=== PATIENT | male | born 1955 | race Caucasian/White ===

== ENCOUNTER 2019-06-21 09:39 | Inpatient (IN) ==
[2019-06-21] MEDS ORDERED: Albuterol 2.5 MG/3 ML NEBULIZER IH PRN ×2 (10:03→20:16)
[2019-06-21] MEDS ORDERED: cefOXitin 2,000 MG in Water for inj. (sterile) 20 ML IVP ONE (10:03)
[2019-06-21] MEDS ORDERED: Ringers Solution, Lactated 1,000 ML IVC SCH (10:15)
[2019-06-21] MEDS ORDERED: Acetaminophen IV 1,000 MG/100 ML INFUS..BTL IVPB ONE (10:57)
[2019-06-21] MEDS ORDERED: Famotidine 20 MG/2 ML VIAL IVP ONE (10:57)
[2019-06-21] MEDS ORDERED: *HR* Propofol 200 MG/20 ML VIAL IVP ONE (11:23)
[2019-06-21] MEDS ORDERED: *HR* Rocuronium Bromide 50 MG/5 ML VIAL ONE ×2 (11:23→13:18)
[2019-06-21] MEDS ORDERED: *HR* Midazolam HCl 2 MG/2 ML VIAL ONE (11:23)
[2019-06-21] MEDS ORDERED: *HR* FentaNYL (PF) 100 MCG/2 ML VIAL ONE (11:23)
[2019-06-21] MEDS ORDERED: Lidocaine -MPF 2% 2 ML VIAL ONE (11:23)
[2019-06-21] MEDS ORDERED: Ondansetron 4 MG/2 ML VIAL ONE (11:27)
[2019-06-21] MEDS ORDERED: Ondansetron 4 MG/2 ML VIAL IVP ONE (11:37)
[2019-06-21] MEDS ORDERED: *HR* Promethazine 25 MG/ML VIAL IVP PRN (11:37)
[2019-06-21] MEDS ORDERED: Bupivacaine/EPI 1:200k 0.5%PF 30 ML VIAL ONE (11:43)
[2019-06-21] MEDS ORDERED: Dexamethasone 4 MG/ML VIAL ONE (12:06)
[2019-06-21] MEDS ORDERED: *HR* HYDROMORPHONE 2 MG/ML VIAL ONE (12:06)
[2019-06-21] MEDS ORDERED: *HR* PHENYLEPHRINE 1,000 MCG/10 ML SYRINGE IVP ONE (12:39)
[2019-06-21] MEDS ORDERED: *HR* Vasopressin 20 UNIT/ML VIAL ONE (12:46)
[2019-06-21] MEDS: *HR* HYDROmorphone PF 0.5 MG/0.5 ML SYRINGE IVP PRN ×4 (18:32→18:56)
[2019-06-21] MEDS: *HR* HYDROmorphone (PF) 1 MG/ML SYRINGE IVP PRN ×2 (19:06→19:13)
[2019-06-21] MEDS ORDERED: *HR* HYDROmorphone (PF) 1 MG/ML SYRINGE IVP PRN (19:23)
[2019-06-21] MEDS ORDERED: Ondansetron 4 MG/2 ML VIAL IVP PRN (20:16)
[2019-06-21] MEDS ORDERED: Naloxone 0.4 MG/ML INJ IVP PRN (20:16)
[2019-06-21] MEDS ORDERED: *HR* OxyCODONE Immed Rel 5 MG TABLET PO PRN (20:16)
[2019-06-21] MEDS ORDERED: 0.9 % Sodium Chloride 1,000 ML ONE (21:27)
[2019-06-21] MEDS: 0.9 % Sodium Chloride 1,000 ML IVC SCH (21:38)
[2019-06-21] MEDS: *HR* FentaNYL (PF) 100 MCG/2 ML VIAL IVP PRN (22:06)
[2019-06-21] MEDS: lisinopriL 10 MG TABLET PO SCH (22:07)
[2019-06-21] MEDS: Acetaminophen IV 1,000 MG/100 ML INFUS..BTL IVPB SCH (23:51)
[2019-06-22] MEDS: *HR* FentaNYL (PF) 100 MCG/2 ML VIAL IVP PRN (05:21)
[2019-06-22] MEDS: Acetaminophen IV 1,000 MG/100 ML INFUS..BTL IVPB SCH ×3 (05:24→18:05)
[2019-06-22 06:45] LABS: Hematocrit 33.9 % (37.5-50.1); Hemoglobin 10.5 g/dL (12.9-16.9); Immature Granulocytes % 0.4 % (0-4); Lymphocytes # 0.8 K/mcL (0.6-4.6); Lymphocytes % 9.3 %; Mean Corpuscular Hemoglobin 25.5 pg (28.0-33.3); Mean Corpuscular Volume 82.3 fL (83.0-100.0); Mean Platelet Volume 9.9 fL (9.4-12.4); Monocytes # 0.8 K/mcL (0.0-1.3); Monocytes % 9.3 %; Neutrophils # 6.5 K/mcL (1.6-8.9); Platelet Count 221 K/mcL (140-400); Red Blood Count 4.12 M/mcL (4.19-5.50); Red Cell Distribution Width 15.3 % (11.5-14.5); White Blood Count 8.1 K/mcL (4.3-11.1)
[2019-06-22 07:06] LABS: BUN/Creatinine Ratio 11 (6-26); Blood Urea Nitrogen 15 mg/dL (8-23); Carbon Dioxide 24 mEq/L (23-29); Chloride 103 mEq/L (98-107); Glucose 126 mg/dL (70-105); Osmolality,Calculated 284 (280-300); Potassium 4.4 mEq/L (3.5-5.1); Sodium 136 mEq/L (136-145); eGFR For African Americans > 60 (> 60); eGFR For Non-African Americans 55 (> 60)
[2019-06-22] MEDS ORDERED: Morphine Sulfate Oral CONC 10 MG/0.5 ML ORAL.SYG SL PRN (08:10)
[2019-06-22] MEDS: 0.9 % Sodium Chloride 1,000 ML IVC SCH ×2 (09:52→23:17)
[2019-06-22] MEDS: lisinopriL 10 MG TABLET PO SCH ×2 (09:52→18:14)
[2019-06-22] MEDS: atenoloL 50 MG TABLET PO SCH (09:52)
[2019-06-22] MEDS: DALIRESP 500 MCG PO SCH (12:01)
[2019-06-22] MEDS: *HR* HYDROmorphone (PF) 1 MG/ML SYRINGE IVP PRN ×3 (12:31→23:14)
[2019-06-22] MEDS: *HR* Heparin 5,000 UNIT/ML VIAL SQ SCH (18:05)
[2019-06-23] MEDS: Acetaminophen IV 1,000 MG/100 ML INFUS..BTL IVPB SCH ×4 (00:49→17:34)
[2019-06-23] MEDS: *HR* HYDROmorphone (PF) 1 MG/ML SYRINGE IVP PRN ×4 (03:03→17:23)
[2019-06-23] MEDS: *HR* Heparin 5,000 UNIT/ML VIAL SQ SCH ×2 (05:10→17:33)
[2019-06-23 05:34] LABS: BUN/Creatinine Ratio 10 (6-26); Blood Urea Nitrogen 12 mg/dL (8-23); Calcium 7.6 mg/dL (8.6-10.3); Carbon Dioxide 28 mEq/L (23-29); Chloride 101 mEq/L (98-107); Glucose 94 mg/dL (70-105); Osmolality,Calculated 276 (280-300); Potassium 3.9 mEq/L (3.5-5.1); Sodium 133 mEq/L (136-145); eGFR For African Americans > 60 (> 60); eGFR For Non-African Americans > 60 (> 60)
[2019-06-23] MEDS: lisinopriL 10 MG TABLET PO SCH ×2 (08:36→21:55)
[2019-06-23] MEDS: atenoloL 50 MG TABLET PO SCH (08:36)
[2019-06-23] MEDS: DALIRESP 500 MCG PO SCH (08:38)
[2019-06-23] MEDS: 0.9 % Sodium Chloride 1,000 ML IVC SCH (10:59)
[2019-06-23] MEDS: *HR* OxyCODONE Immed Rel 5 MG TABLET PO PRN (22:22)
[2019-06-24] MEDS: *HR* HYDROmorphone (PF) 1 MG/ML SYRINGE IVP PRN (01:12)
[2019-06-24] MEDS: 0.9 % Sodium Chloride 1,000 ML IVC SCH (01:13)
[2019-06-24] MEDS: Acetaminophen IV 1,000 MG/100 ML INFUS..BTL IVPB SCH ×2 (01:17→06:02)
[2019-06-24] MEDS: *HR* Heparin 5,000 UNIT/ML VIAL SQ SCH ×2 (06:02→18:14)
[2019-06-24] MEDS ORDERED: Colchicine 0.6 MG TABLET PO PRN (08:12)
[2019-06-24] MEDS: DALIRESP 500 MCG PO SCH (09:17)
[2019-06-24] MEDS: lisinopriL 10 MG TABLET PO SCH ×2 (09:18→21:23)
[2019-06-24] MEDS: atenoloL 50 MG TABLET PO SCH (09:18)
[2019-06-24] MEDS: Acetaminophen 325 MG TABLET PO SCH ×3 (12:36→23:58)
[2019-06-24] MEDS: *HR* OxyCODONE Immed Rel 5 MG TABLET PO PRN (21:36)
[2019-06-25] MEDS: *HR* Heparin 5,000 UNIT/ML VIAL SQ SCH ×2 (05:18→16:36)
[2019-06-25] MEDS: Acetaminophen 325 MG TABLET PO SCH ×4 (05:18→23:36)
[2019-06-25] MEDS ORDERED: *HR* Amiodarone 200 MG TABLET ONE (09:00)
[2019-06-25] MEDS ORDERED: atenoloL 50 MG TABLET ONE (09:00)
[2019-06-25] MEDS ORDERED: Gabapentin 100 MG CAPSULE ONE (09:00)
[2019-06-25] MEDS: lisinopriL 10 MG TABLET PO SCH ×2 (16:35→20:31)
[2019-06-25] MEDS: atenoloL 50 MG TABLET PO SCH (16:35)
[2019-06-25] MEDS: DALIRESP 500 MCG PO SCH (16:35)
[2019-06-26] MEDS: *HR* Heparin 5,000 UNIT/ML VIAL SQ SCH ×2 (05:47→17:47)
[2019-06-26] MEDS: Acetaminophen 325 MG TABLET PO SCH ×3 (05:47→17:47)
[2019-06-26] MEDS: atenoloL 50 MG TABLET PO SCH (09:19)
[2019-06-26] MEDS: lisinopriL 10 MG TABLET PO SCH ×2 (09:21→19:34)
[2019-06-26] MEDS: DALIRESP 500 MCG PO SCH (09:21)
[2019-06-26] MEDS: *HR* OxyCODONE Immed Rel 5 MG TABLET PO PRN (19:35)
[2019-06-27] MEDS: Acetaminophen 325 MG TABLET PO SCH ×2 (00:01→05:57)
[2019-06-27 01:28] LABS: Hematocrit 34.8 % (37.5-50.1); Hemoglobin 11.3 g/dL (12.9-16.9); Mean Corpuscular HGB Conc 32.5 g/dL (31.6-35.5); Mean Corpuscular Hemoglobin 25.5 pg (28.0-33.3); Mean Corpuscular Volume 78.4 fL (83.0-100.0); Platelet Count 303 K/mcL (140-400); Red Blood Count 4.44 M/mcL (4.19-5.50); White Blood Count 7.3 K/mcL (4.3-11.1)
[2019-06-27 01:45] LABS: Calcium 8.3 mg/dL (8.6-10.3); Potassium 3.5 mEq/L (3.5-5.1)
[2019-06-27] MEDS: *HR* OxyCODONE Immed Rel 5 MG TABLET PO PRN (03:46)
[2019-06-27] MEDS: *HR* Heparin 5,000 UNIT/ML VIAL SQ SCH (05:57)
[2019-06-27 06:50] VITALS: BP 119/81
[2019-06-27] MEDS: atenoloL 50 MG TABLET PO SCH (10:26)
[2019-06-27] MEDS: lisinopriL 10 MG TABLET PO SCH (10:26)
[2019-06-27] MEDS: DALIRESP 500 MCG PO SCH (10:26)
== END 2019-06-27 12:34 | disposition home or self-care (01) | DRG 330 ==
LOC: SAMDAY 09:39 → 3ANU 20:04
PROVIDERS: ADMIT Surgery; ATTEND Surgery

== ENCOUNTER 2020-07-17 09:41 | Observation (INO) ==
[2020-07-17 10:15] LABS: Basophils # 0.1 K/mcL (0.0-0.2); Basophils % 0.8 %; Eosinophils # 0.8 K/mcL (0.0-0.6); Eosinophils % 12.3 %; Hemoglobin 13.5 g/dL (12.9-16.9); Immature Granulocytes % 0.5 % (0-4); Lymphocytes # 1.9 K/mcL (0.6-4.6); Lymphocytes % 28.3 %; Mean Corpuscular HGB Conc 32.1 g/dL (31.6-35.5); Mean Corpuscular Hemoglobin 27.6 pg (28.0-33.3); Mean Corpuscular Volume 85.7 fL (83.0-100.0); Mean Platelet Volume 10.1 fL (9.4-12.4); Monocytes # 0.6 K/mcL (0.0-1.3); Monocytes % 9.2 %; Neutrophils # 3.3 K/mcL (1.6-8.9); Platelet Count 205 K/mcL (140-400); Red Cell Distribution Width 14.1 % (11.5-14.5); Segmented Neutrophils % 48.9 %; White Blood Count 6.7 K/mcL (4.3-11.1)
[2020-07-17 10:22] LABS: INR 1.1; Prothrombin Time 12.7 Seconds (9.4-12.1)
[2020-07-17] MEDS ORDERED: 0.9 % Sodium Chloride 500 ML ONE (10:41)
[2020-07-17] MEDS ORDERED: *HR* HYDROmorphone 2 MG/ML SYRINGE IVP ONE (11:24)
[2020-07-17] MEDS ORDERED: Naloxone 0.4 MG/ML INJ IVP PRN ×3 (12:48→13:56)
[2020-07-17] MEDS ORDERED: Ondansetron 4 MG/2 ML VIAL IVP PRN (12:50)
[2020-07-17] MEDS ORDERED: *HR* HYDROmorphone (PF) 1 MG/ML SYRINGE IVP PRN (12:51)
[2020-07-17] MEDS: atenoloL 50 MG TABLET PO SCH (13:22)
[2020-07-17] MEDS: Loratadine 10 MG TABLET PO SCH (13:22)
[2020-07-17 14:07] LABS: Alanine Aminotransferase 41 Units/L (7-52); Albumin/Globulin Ratio 1.3 (1.1-2.2); Alkaline Phosphatase 110 Units/L (34-104); Aspartate Amino Transferase 49 Units/L (13-39); BUN/Creatinine Ratio 6 (6-26); Bilirubin,Total 0.7 mg/dL (0.3-1.0); Blood Urea Nitrogen 8 mg/dL (8-23); Calcium 8.8 mg/dL (8.6-10.3); Carbon Dioxide 28 mEq/L (23-29); Chloride 104 mEq/L (98-107); Globulin 3.1 g/dL (2.4-3.5); Glucose 112 mg/dL (70-105); Osmolality,Calculated 289 (280-300); Sodium 140 mEq/L (136-145); Total Protein 7.1 g/dL (6.4-8.9); eGFR For African Americans > 60 (> 60); eGFR For Non-African Americans 53 (> 60)
[2020-07-17] MEDS: Ipratropium/Albuterol Neb 3 ML IH SCH ×2 (16:09→21:41)
[2020-07-17] MEDS: *HR* HYDROmorphone (PF) 1 MG/ML SYRINGE IVP PRN (17:56)
[2020-07-18] MEDS: *HR* HYDROmorphone (PF) 1 MG/ML SYRINGE IVP PRN ×2 (00:44→05:42)
[2020-07-18 03:42] LABS: Basophils % 0.3 %; Eosinophils # 0.3 K/mcL (0.0-0.6); Eosinophils % 5.6 %; Hemoglobin 12.9 g/dL (12.9-16.9); Immature Granulocytes % 0.2 % (0-4); Lymphocytes # 1.5 K/mcL (0.6-4.6); Lymphocytes % 24.9 %; Mean Corpuscular HGB Conc 31.5 g/dL (31.6-35.5); Mean Corpuscular Hemoglobin 27.9 pg (28.0-33.3); Mean Corpuscular Volume 88.6 fL (83.0-100.0); Mean Platelet Volume 10.3 fL (9.4-12.4); Monocytes # 0.6 K/mcL (0.0-1.3); Monocytes % 9.7 %; Neutrophils # 3.6 K/mcL (1.6-8.9); Platelet Count 200 K/mcL (140-400); Red Blood Count 4.63 M/mcL (4.19-5.50); Red Cell Distribution Width 14.2 % (11.5-14.5); Segmented Neutrophils % 59.3 %; White Blood Count 6.1 K/mcL (4.3-11.1)
[2020-07-18] MEDS: Ipratropium/Albuterol Neb 3 ML IH SCH ×2 (03:59→11:06)
[2020-07-18] MEDS: atenoloL 50 MG TABLET PO SCH (08:27)
[2020-07-18] MEDS: Loratadine 10 MG TABLET PO SCH (08:27)
[2020-07-18] MEDS ORDERED: Roflumilast [Daliresp] 500 MCG PO SCH (09:00)
[2020-07-18] MEDS ORDERED: OLODATEROL HCL IH SCH (10:00)
[2020-07-18] MEDS ORDERED: TIOTROPIUM BR IH SCH (10:00)
[2020-07-18 11:02] VITALS: BP 105/71
[2020-07-18] MEDS ORDERED: *HR* Heparin 5,000 UNIT/ML VIAL SQ SCH (13:30)
== END 2020-07-18 15:00 | disposition home or self-care (01) ==
LOC: 2ANU 09:41 → RAD 09:41 → SUATTDRO 12:03
PROVIDERS: ADMIT Internal Medicine; ATTEND Family Medicine

== ENCOUNTER 2022-01-27 23:11 | Observation (INO) ==
[2022-01-27 23:53] LABS: INR 1.2; Prothrombin Time 13.2 Seconds (9.4-12.1)
[2022-01-27 23:54] LABS: Basophils % 0.5 %; Eosinophils # 0.3 K/mcL (0.0-0.6); Eosinophils % 3.7 %; Hematocrit 39.5 % (37.5-50.1); Hemoglobin 13.1 g/dL (12.9-16.9); Immature Granulocytes % 0.3 % (0-4); Lymphocytes # 1.7 K/mcL (0.6-4.6); Lymphocytes % 22.1 %; Mean Corpuscular HGB Conc 33.2 g/dL (31.6-35.5); Mean Corpuscular Hemoglobin 29.4 pg (28.0-33.3); Mean Corpuscular Volume 88.6 fL (83.0-100.0); Mean Platelet Volume 9.3 fL (9.4-12.4); Monocytes # 0.5 K/mcL (0.0-1.3); Monocytes % 6.5 %; Neutrophils # 5.1 K/mcL (1.6-8.9); Platelet Count 349 K/mcL (140-400); Red Blood Count 4.46 M/mcL (4.19-5.50); Red Cell Distribution Width 13.4 % (11.5-14.5); Segmented Neutrophils % 66.9 %; White Blood Count 7.7 K/mcL (4.3-11.1)
[2022-01-27 23:56] LABS: Activated Partial Thrombo Time 31.7 Seconds (26.0-36.0)
[2022-01-28 00:31] LABS: Blood Urea Nitrogen 8 mg/dL (8-23); Chloride 102 mEq/L (98-107); Glucose 126 mg/dL (70-105); Osmolality,Calculated 278 (280-300); Potassium 3.7 mEq/L (3.5-5.1); Sodium 134 mEq/L (136-145); Troponin I < 0.03 ng/mL (< 0.04)
[2022-01-28 01:30] LABS: BUN/Creatinine Ratio 5 (6-26); Carbon Dioxide 20 mEq/L (23-29)
[2022-01-28] MEDS: Nitroglycerin 0.4 MG TAB.SUBL SL PRN ×3 (02:10→14:21)
[2022-01-28] MEDS ORDERED: Iopamidol - 370 500 ML MLS IVP ONE (03:45)
[2022-01-28] MEDS ORDERED: Aspirin 325 MG TABLET PO ONE (05:54)
[2022-01-28] MEDS ORDERED: Ondansetron 4 MG/2 ML VIAL IVP PRN (07:28)
[2022-01-28] MEDS ORDERED: Morphine Sulfate 2 MG/ML SYRINGE IVP PRN (07:28)
[2022-01-28] MEDS ORDERED: Naloxone 0.4 MG/ML INJ IVP PRN (07:31)
[2022-01-28 09:05] LABS: Chol/HDL Ratio 2.9 (0-4.9); Magnesium 1.9 mg/dL (1.6-2.6)
[2022-01-28] MEDS: 0.9 % Sodium Chloride 1,000 ML IVC SCH ×2 (09:27→20:20)
[2022-01-28 10:35] LABS: Estimated Average Glucose 120 mg/dl; Hemoglobin A1C 5.8 %
[2022-01-28] MEDS: *HR* Heparin 5,000 UNIT/ML VIAL SQ SCH ×2 (14:24→20:20)
[2022-01-28] MEDS ORDERED: Iopamidol - 370 200 ML INFUS..BTL ONE (16:25)
[2022-01-28] MEDS ORDERED: Nitroglycerin 1,000 MCG/5 ML VIAL IV ONE (16:25)
[2022-01-28] MEDS ORDERED: *HR* Midazolam HCl 2 MG/2 ML VIAL ONE ×2 (16:25→16:51)
[2022-01-28] MEDS ORDERED: *HR* FentaNYL (PF) 100 MCG/2 ML VIAL ONE (16:25)
[2022-01-28] MEDS ORDERED: *HR* Heparin 10,000 UNIT/10 ML VIAL ONE (16:25)
[2022-01-28] MEDS ORDERED: Heparin 1,000 UNITS/500 mL 500 ML ONE (16:25)
[2022-01-28] MEDS ORDERED: 0.9 % Sodium Chloride 1,000 ML ONE ×2 (16:25→16:34)
[2022-01-28] MEDS ORDERED: SUMAtriptan succinate 50 MG TABLET PO PRN (16:45)
[2022-01-28] MEDS ORDERED: Artificial Tears SOLN 15 ML BOTTLE BOTH EYES PRN (16:45)
[2022-01-28] MEDS ORDERED: Colchicine 0.6 MG TABLET PO PRN (16:45)
[2022-01-29 04:58] LABS: Basophils % 0.2 %; Eosinophils # 0.2 K/mcL (0.0-0.6); Eosinophils % 1.3 %; Hematocrit 38.5 % (37.5-50.1); Hemoglobin 12.7 g/dL (12.9-16.9); Immature Granulocytes % 0.5 % (0-4); Lymphocytes # 0.8 K/mcL (0.6-4.6); Lymphocytes % 6.3 %; Mean Corpuscular Hemoglobin 29.1 pg (28.0-33.3); Mean Corpuscular Volume 88.3 fL (83.0-100.0); Mean Platelet Volume 9.5 fL (9.4-12.4); Monocytes # 0.6 K/mcL (0.0-1.3); Monocytes % 4.8 %; Neutrophils # 11.1 K/mcL (1.6-8.9); Platelet Count 330 K/mcL (140-400); Red Blood Count 4.36 M/mcL (4.19-5.50); Red Cell Distribution Width 13.5 % (11.5-14.5); Segmented Neutrophils % 86.9 %
[2022-01-29 05:02] LABS: White Blood Count 12.8 K/mcL (4.3-11.1)
[2022-01-29 05:06] LABS: INR 1.2; Prothrombin Time 13.5 Seconds (9.4-12.1)
[2022-01-29 05:21] LABS: Albumin 3.9 g/dL (3.5-5.7); Albumin/Globulin Ratio 1.3 (1.1-2.2); Bilirubin,Total 0.8 mg/dL (0.3-1.0); Magnesium 1.6 mg/dL (1.6-2.6); Potassium 3.9 mEq/L (3.5-5.1); Total Protein 6.9 g/dL (6.4-8.9)
[2022-01-29] MEDS: *HR* Heparin 5,000 UNIT/ML VIAL SQ SCH ×2 (05:24→14:00)
[2022-01-29] MEDS ORDERED: Cholestyramine 4 GM POWD.PACK PO SCH (08:00)
[2022-01-29] MEDS ORDERED: Cholecalciferol (D-3) 1,000 UNIT (25MCG) TABLET PO SCH (09:00)
[2022-01-29] MEDS ORDERED: Roflumilast [Daliresp] 500 MCG Tablet PO SCH (09:00)
[2022-01-29] MEDS ORDERED: atenoloL 50 MG TABLET PO SCH (09:00)
[2022-01-29] MEDS ORDERED: Aspirin 81 MG TAB.CHEW PO SCH (09:00)
[2022-01-29 10:59] VITALS: BP 128/72; PULSE 72; TEMP 97.9; O2SAT 93
== END 2022-01-29 15:05 | disposition home or self-care (01) ==
LOC: EMEROOARM 23:11 → 3BNU 23:11 → SUATTDRO 01-28 07:43 → 3BNU 01-28 08:23
PROVIDERS: ADMIT Hospitalist; ATTEND Nurse Practitioner